=== PATIENT | male | born 1990 | race Caucasian/White ===

== ENCOUNTER 2022-02-25 16:39 | Emergency (ER) | payer SELFPAY ==
[~2022-02-25] VITALS: Ht 177.8 cm; Wt 95.5 kg
[2022-02-25] MEDS ORDERED: ondansetron 4mg rapidly disintigrating tab PO ONE (16:50)
[2022-02-25 18:39] VITALS: BP 128/84
== END 2022-02-25 18:41 | disposition home or self-care (01) ==
LOC: ER 16:40
DX: R11.2 Nausea with vomiting, unspecified (principal)
CPT/HCPCS: 99283; J7030